=== PATIENT | male | born 1995 | race Caucasian/White ===

== ENCOUNTER 2022-11-24 00:14 | Emergency (ER) | payer OTHER, SELFPAY ==
[2022-11-24 00:19] VITALS: BP 139/91; PULSE 70; RESP 16; TEMP 36.7; O2SAT 100; BMI 21.5
--- NOTE | 2022-11-24 01:18 | ED.EYEPROB1 ---
HPI - Eye Problem General Chief complaint: Eye Problems Stated complaint: FOREIGN BODY IN RIGHT EYE Time Seen by Provider: 11/24/22 00:35 Source: patient and family () Mode of arrival: walk-in History of Present Illness HPI Narrative: This 27-year-old male presents for evaluation of a foreign body and/or foreign body sensation in his right eye. The patient states he was mowing the yard earlier and something flew into his eye. He irrigated his eye in the shower and his put drops into his eye but he still has a foreign body sensation. He states he thought if he went to bed that the foreign body sensation would resolve but he woke up with severe eye pain and blepharospasm. He does not wear contact lenses or corrective lenses. Related Data Allergies Allergy/AdvReac Type Severity Reaction Status Date / Time Penicillins Allergy Verified 11/24/22 00:25 Review of Systems ROS Status of ROS 10 or more systems reviewed and unremarkable except as noted in history and below [facility] Social History Smoking status: Never smoker Exam Narrative Exam Narrative: Nurses note and vital signs reviewed and patient is not hypoxic. Blood pressure is mildly elevated at 139/91 General: The patient appears Uncomfortable and unable to open his eyes. No respiratory distress noted Skin: Warm, dry, no pallor noted. There is no rash noted. Head: Normocephalic, atraumatic Eye: Right eye is injected with clear tearing, Tetracaine was instilled into the right eye which relieved the blepharospasm, no foreign body was appreciated on the eye or under the upper or lower eyelid. Fluorescein was instilled into the eye revealing a corneal abrasion from the 12:00 to 3 o'clock position over the iris. Cardiovascular: Regular Rate and Rhythm Respiratory: Patient is in no distress, no accessory muscle use, lungs are clear to auscultation, no wheezing, rales or rhonchi Neurological: A&O x4, normal speech Psychiatric: Cooperative Constitutional Vital Signs, click to edit/add: Last Vital Signs Temp 98.0 F 11/24/22 00:19 Pulse 70 11/24/22 00:19 Resp 16 11/24/22 00:19 BP 139/91 H 11/24/22 00:19 Pulse Ox 100 11/24/22 00:19 O2 Del Method Room Air 11/24/22 00:19 Course Vital Signs Vital signs: Vital Signs Temperature 98.0 F 11/24/22 00:19 Pulse Rate 70 11/24/22 00:19 Respiratory Rate 16 11/24/22 00:19 Blood Pressure 139/91 H 11/24/22 00:19 Pulse Oximetry 100 11/24/22 00:19 Oxygen Delivery Method Room Air 11/24/22 00:19 Temperature 98.0 F 11/24/22 00:19 Pulse Rate 70 11/24/22 00:19 Respiratory Rate 16 11/24/22 00:19 Blood Pressure 139/91 H 11/24/22 00:19 Pulse Oximetry 100 11/24/22 00:19 Oxygen Delivery Method Room Air 11/24/22 00:19 MDM - Eye Problem MDM Narrative Medical decision making narrative: This is a 7-year-old male presents for evaluation of foreign body sensation to the right eye. He was mowing the lawn earlier today when he felt something fly into his right eye. He did take a shower and rinsed his eye out and his put eyedrops from the pharmacy into the eye. He said he would feel better if he went to bed but he awakened with right thigh pain and blepharospasm. He does not wear contact lenses or corrective lenses. There was no visible foreign body but there was fluorescein uptake from the 12:00 to 3 o'clock position in a crescent shape over the iris suggesting that he likely rubbed his eye causing a corneal abrasion. He was given erythromycin ointment and will be discharged home with erythromycin ointment to use for the next 5-7 days. Discharge Plan Discharge Chief Complaint: Eye Problems Clinical Impression: Corneal abrasion Patient Disposition: Home, Self-Care Time of Disposition Decision: 01:44 Condition: Good Instructions: Corneal Abrasion (ED), Photophobia (ED) Stand Alone Forms: Portal Instructions Referrals: Physician,Non-Staff, MD [Primary Care Provider] - 1 week Discharge Date/Time: 11/24/22 02:21
[2022-11-24] MEDS: FLUORESCEIN SODIUM 1 MG STRIP OP (01:23)
[2022-11-24] MEDS: ERYTHROMYCIN OP OINT 0.5% 1 GM TUBE EYE-RIGHT (02:07)
== END 2022-11-24 02:21 | disposition home or self-care (01) ==
PROVIDERS: Emergency Provider Emergency Medicine
DX: S05.01XA Injury of conjunctiva and corneal abrasion without foreign body, right eye, initial encounter (principal)
CPT/HCPCS: 99283